=== PATIENT | female | born 1950 | race Caucasian/White ===

== ENCOUNTER 2020-03-18 10:48 | Inpatient (IN) | payer MEDICARE, OTHER ==
[~2020-03-18] VITALS: Ht 193 cm; Wt 78.0 kg
[2020-03-18] MEDS ORDERED: ACETAMINOPHEN ES 500 MG TABLET PO ONE (11:00)
--- NOTE | 2020-03-18 11:05 | NUR ---
BIB [facility] C/O COUGH, SOB, AND BACK PAIN. vs checked. seen by
--- NOTE | 2020-03-18 11:15 | NUR ---
covid swab collected sent to lab
[2020-03-18] MEDS ORDERED: DEXAMETHASONE SOD PHOSPHATE 10 MG/ML VIAL IV ONE (11:30)
[2020-03-18] MEDS ORDERED: DEXAMETHASONE SOD PHOSPHATE 10 MG/ML VIAL ONE (11:37)
[2020-03-18] MEDS ORDERED: ACETAMINOPHEN ES 500 MG TABLET ONE (11:37)
--- NOTE | 2020-03-18 11:41 | NUR ---
urine collected sent to lab.
[2020-03-18 11:44] LABS: ALANINE AMINOTRANSFERASE 19 U/L (12-78); ALBUMIN 3.6 g/dL (3.4-5.0); ALKALINE PHOSPHATASE 74 U/L (46-116); ASPARTATE AMINOTRANSFERASE 35 U/L (15-37); BILIRUBIN,DIRECT 0.1 mg/dL (0.0-0.2); BILIRUBIN,TOTAL 0.4 mg/dL (0.2-1.0); CALCIUM, SERUM 8.7 mg/dL (8.5-10.1); CARBON DIOXIDE 25 mmol/L (21-32); CHLORIDE 93 mmol/L (98-107); CREATININE 1.1 mg/dL (0.6-1.3); GLUCOSE 96 mg/dL (74-106); POTASSIUM 3.8 mmol/L (3.5-5.1); SODIUM SERUM 128 mmol/L (136-145); TOTAL PROTEIN, SERUM 7.4 g/dL (6.4-8.2); UREA NITROGEN, BLOOD 13 mg/dL (7-18)
[2020-03-18 12:18] LABS: BILIRUBIN,URINE Negative (NEGATIVE); COLOR,URINE YELLOW (YELLOW); LEUKOCYTE ESTERASE ,URINE Negative (NEGATIVE); NITRITE, URINE Negative (NEGATIVE); PH,URINE 6.5 (5.0-8.0); PROTEIN,URINE >=300 mg/dl (NEGATIVE); UGLUCOSE Negative (NEGATIVE); UROBILINOGEN,URINE 0.2 EU/dL (0.2)
[2020-03-18 12:28] LABS: BASOPHILS % (AUTO) 0.5 % (0.0-2.0); HEMATOCRIT 35 % (33-45); HEMOGLOBIN 11.3 g/dL (11.5-14.8); LYMPHOCYTES # (AUTO) 0.8 /CMM (0.8-4.8); LYMPHOCYTES % (AUTO) 26.2 % (20.0-44.0); MEAN CORPUSCULAR HGB CONC 33 g/dl (31.0-36.0); MEAN CORPUSCULAR VOLUME 79 fL (82-100); MONOCYTES # (AUTO) 0.4 /CMM (0.1-1.30); MONOCYTES % (AUTO) 14.3 % (2.0-12.0); NEUTROPHILS # (AUTO) 1.8 /CMM (1.8-8.9); PLATELET COUNT (AUTO) 213 /CMM (150-450); RED BLOOD CELL COUNT(AUTO) 4.39 MIL/uL (4.0-5.2); WHITE BLOOD COUNT (AUTO) 3.1 K/uL (4.3-11.0)
[2020-03-18 12:43] LABS: BACTERIA,URINE Rare /HPF (None Seen); RBC,URINE 0-2 /HPF (0-2); SQUAMOUS EPITHELIAL CELL,UR Moderate /HPF (None Seen); WBC,URINE 0-2 /HPF (0-3)
--- NOTE | 2020-03-18 13:25 | NUR ---
received a call from the lab regarding covid result "positive". notified.
[2020-03-18] MEDS ORDERED: ASPIRIN 325 MG TABLET PO ONE (13:30)
[2020-03-18] MEDS ORDERED: ASPIRIN EC 325 MG TABLET.DR PO ONE (13:36)
[2020-03-18] MEDS ORDERED: *INSULIN REGULAR(HUMULIN R)HUM 100 UNIT/ML VIAL SQ PRN (19:00)
[2020-03-18] MEDS ORDERED: ONDANSETRON HCL/PF 4 MG/2 ML VIAL IVP PRN (19:00)
[2020-03-18] MEDS ORDERED: DEXTROSE 50%-WATER 50 ML DISP.SYRIN IV PRN (19:00)
[2020-03-18] MEDS ORDERED: ALBUTEROL SULFATE INH 18 GM HFA.AER.AD IH PRN (19:00)
[2020-03-18] MEDS ORDERED: Z GUARD REMEDY 2 OZ OINT TP PRN (19:00)
[2020-03-18] MEDS ORDERED: INSULIN REGULAR, HUMAN 100 UNIT/ML 3 ML VIAL SQ PRN (19:00)
[2020-03-18] MEDS: BLOOD SUGAR DIAGNOSTIC 1 EACH STRIP IN SCH ×2 (19:56→21:35)
[2020-03-18] MEDS ORDERED: CEFTRIAXONE 1GM BAG (ER ONLY) 50 ML IV ONE (19:58)
[2020-03-18] MEDS ORDERED: ENOXAPARIN SODIUM 40 MG/0.4 ML DISP.SYRIN SQ ONE (19:58)
[2020-03-18] MEDS: CEFTRIAXONE 1 G in IV D5W 50 ML IV SCH (20:01)
[2020-03-18] MEDS: ENOXAPARIN SODIUM 40 MG/0.4 ML DISP.SYRIN SQ SCH (20:08)
--- NOTE | 2020-03-18 20:36 | NUR ---
PATIENT IS AAOX4. NO SOB .BREATHING EVENLY AND UNALBORED ON 4L OF NASAL CANNULA. PATIENT'S BED IS AT THE LOWEST POSITION. SIDE RAILS ARE UP FOR SAFETY. PATIENT STEPHANIE HAS NO COMPLAINT AT THIS TIME. CALL LIGHT IS WITHIN REACH. CONNECTED TO THE PET COUNSELOR. WILL CONTINUE TO SUPERVISE THIS PATIENT.
[2020-03-18] MEDS: DOXYCYCLINE 100 MG in IV D5W 100 ML IV SCH (21:00)
--- NOTE | 2020-03-18 22:16 | NUR ---
PATIENT IS PROVIDED WITH A BED RIOS
--- NOTE | 2020-03-18 22:35 | NUR ---
PATIENT CHANGED INTO CLEAN SHEETS AND GOWN.
--- NOTE | 2020-03-18 23:11 | NUR ---
PATIENT REFUSED NORCO 5-MG MEDICATION RETURNED TO THE Stockezy MACHINE.
[2020-03-18] MEDS ORDERED: ONDANSETRON HCL/PF 4 MG/2 ML VIAL ONE (23:15)
[2020-03-18] MEDS ORDERED: HYDROCODONE/APAP 5/325MG TABLET ONE (23:15)
[2020-03-18] MEDS ORDERED: ACETAMINOPHEN 325 MG TABLET ONE (23:19)
[2020-03-18] MEDS: ACETAMINOPHEN 325 MG TABLET PO PRN (23:22)
--- NOTE | 2020-03-19 03:01 | NUR ---
PATIENT IS ASKING FOR SLEEPING MEDICATIONS. MICHELE DUNHAM DNP IS NOTIFIED.
[2020-03-19] MEDS ORDERED: TRAZODONE 50 MG TABLET ONE (03:08)
[2020-03-19] MEDS: TRAZODONE 50 MG TABLET PO PRN ×2 (03:10→23:42)
[2020-03-19 06:57] LABS: BASOPHILS % (AUTO) 0.4 % (0.0-2.0); HEMATOCRIT 37 % (33-45); HEMOGLOBIN 12.1 g/dL (11.5-14.8); LYMPHOCYTES # (AUTO) 0.8 /CMM (0.8-4.8); LYMPHOCYTES % (AUTO) 40.1 % (20.0-44.0); MEAN CORPUSCULAR HGB CONC 33 g/dl (31.0-36.0); MEAN CORPUSCULAR VOLUME 79 fL (82-100); MONOCYTES # (AUTO) 0.4 /CMM (0.1-1.30); MONOCYTES % (AUTO) 21.5 % (2.0-12.0); NEUTROPHILS # (AUTO) 0.7 /CMM (1.8-8.9); PLATELET COUNT (AUTO) 237 /CMM (150-450)
[2020-03-19 07:36] LABS: ALBUMIN 3.4 g/dL (3.4-5.0); BILIRUBIN,TOTAL 0.2 mg/dL (0.2-1.0); CALCIUM, SERUM 8.9 mg/dL (8.5-10.1); MAGNESIUM 2.2 mg/dL (1.8-2.4); PHOSPHORUS 4.1 mg/dL (2.5-4.9); POTASSIUM 3.4 mmol/L (3.5-5.1); TOTAL PROTEIN, SERUM 7.1 g/dL (6.4-8.2)
[2020-03-19 07:39] LABS: WHITE BLOOD COUNT (AUTO) 1.9 K/uL (4.3-11.0)
--- NOTE | 2020-03-19 07:50 | NUR ---
pt in bed 110x4. not in resp distress. on o2 via nc @ 2lpm satting @ 96%
[2020-03-19 07:51] LABS: THYROID STIMULATING HORMONE 0.07 uIU/mL (0.358-3.74)
[2020-03-19] MEDS: PANTOPRAZOLE 40 MG TABLET.DR PO SCH (08:30)
[2020-03-19] MEDS: BLOOD SUGAR DIAGNOSTIC 1 EACH STRIP IN SCH ×4 (08:47→22:04)
[2020-03-19] MEDS ORDERED: ENOXAPARIN SODIUM 40 MG/0.4 ML DISP.SYRIN SQ ONE (09:47)
[2020-03-19] MEDS ORDERED: PANTOPRAZOLE 40 MG TABLET.DR PO ONE (09:48)
[2020-03-19] MEDS ORDERED: DEXAMETHASONE SOD PHOSPHATE 10 MG/ML VIAL ONE (09:48)
[2020-03-19] MEDS ORDERED: ASPIRIN 81 MG TAB.CHEW ONE (09:48)
[2020-03-19] MEDS: DOXYCYCLINE 100 MG in IV D5W 100 ML IV SCH ×2 (10:00→22:05)
[2020-03-19] MEDS: DEXAMETHASONE SOD PHOSPHATE 10 MG/ML VIAL IV SCH (10:00)
[2020-03-19] MEDS: ASPIRIN EC 81 MG TABLET.DR PO SCH (10:00)
[2020-03-19] MEDS: ENOXAPARIN SODIUM 40 MG/0.4 ML DISP.SYRIN SQ SCH ×2 (10:00→20:34)
[2020-03-19 10:33] LABS: BAND % (MANUAL) 1 % (0.0-5.0); LYMPHOCYTES % (MANUAL) 39 % (16-48); MONOCYTES % (MANUAL) 14 % (0-11.0); NEUTROPHILS % (MANUAL) 46 (42-76)
[2020-03-19] MEDS ORDERED: POTASSIUM CHLORIDE 20 MEQ TAB.PRT.SR PO SCH (11:30)
[2020-03-19] MEDS ORDERED: POTASSIUM CHLORIDE 20 MEQ TAB.PRT.SR PO ONE (11:56)
--- NOTE | 2020-03-19 16:05 | NUR ---
ROOM ASSIGNMENT: [id number]
--- NOTE | 2020-03-19 16:20 | NUR ---
REPORT RECEIVED FROM SOPHIA GONZALEZ FROM
--- NOTE | 2020-03-19 16:21 | NUR ---
REPORT GIVEN TO SOPHIA GOODSON FOR GABINO
--- NOTE | 2020-03-19 16:50 | NUR ---
ADMIT TO TELEMETRY NOTE RECEIVED PATIENT VIA GURNEY, TRANSPORTED BY SOPHIA GONZALEZ. PATIENT TRANSFERRED TO BED. VITAL SIGNS TAKEN, WNL. BP: 125/77 HR 60 TEMP 98.7. PATIENT CURRENTLY ON OXYGEN THERAPY AT 3LPM VIA NASAL CANNULA, TOLERATING SETTINGS WELL. O2 SATURATION 100%. NO S/S OF RESPIRATORY DISTRESS AT THIS TIME. PATIENT IS ALERT/ORIENTED X4, ABLE TO MAKE NEEDS KNOWN. PATIENT IS AMBULATORY WITH ASSIST. SKIN INTACT. PATIENT HAS A L FOREARM 20G IV, INTACT AND PATENT, NO S/S OF INFECTION AT THIS TIME. TELE MONITOR PLACED, SHOWING SINUS RHYTHM AT THIS TIME. PATIENT COMPLAINED OF PAIN AT LEFT UPPER ABDOMEN. TYLENOL PROVIDED. WILL CONTINUE TO MONITOR PATIENT AND PROVIDE CARE.
--- NOTE | 2020-03-19 16:58 | NUR ---
pt6 trabnsported to unit on [facility] with emt and rn at bedside w/ acls protocol. nad noted during transport
[2020-03-19] MEDS: ACETAMINOPHEN 325 MG TABLET PO PRN (17:16)
--- NOTE | 2020-03-19 18:50 | NUR ---
RN CLOSING NOTE PATIENT CURRENTLY IN BED, RESTING. PATIENT CURRENTLY ON OXYGEN THERAPY AT 3LPM VIA NASAL CANNULA, TOLERATING SETTINGS WELL. O2 SATURATION 100%. NO S/S OF RESPIRATORY DISTRESS AT THIS TIME. PATIENT IS ALERT/ORIENTED X4, ABLE TO MAKE NEEDS KNOWN. PATIENT IS AMBULATORY WITH ASSIST. SKIN INTACT. PATIENT HAS A L FOREARM 20G IV, INTACT AND PATENT, NO S/S OF INFECTION AT THIS TIME. TELE MONITOR IS SHOWING SINUS RHYTHM AT THIS TIME. ALL SAFETY MEASURES IN PLACE PER HOSPITAL. BED LOCKED IN LOWEST POSITION, SIDE RAILS UP X2, CALL LIGHT WITHIN REACH. WILL ENDORSE TO TYING IN MACHINE OPERATOR NURSE FOR GABINO.
--- NOTE | 2020-03-19 19:50 | NUR ---
RN OPENING NOTE: RECEIVED PATIENT FROM DAYSIAFT NURSE. CURRENTLY IN BED, RESTING. PATIENT CURRENTLY ON OXYGEN THERAPY AT 3LPM VIA NASAL CANNULA, O2 SATURATION 100%. NO S/S OF RESPIRATORY DISTRESS AT THIS TIME. PATIENT IS ALERT/ORIENTED X4, ABLE TO MAKE NEEDS KNOWN. PATIENT IS AMBULATORY WITH ASSIST. SKIN INTACT. PATIENT HAS A L FOREARM 20G IV, INTACT AND PATENT, ALL SAFETY MEASURES IN PLACE PER HOSPITAL. BED LOCKED IN LOWEST POSITION, SIDE RAILS UP X2, CALL LIGHT WITHIN REACH. WILL CONTINUE TO MONITOR.
[2020-03-19 20:00] VITALS: BP 130/75
[2020-03-19] MEDS: CEFTRIAXONE 1 G in IV D5W 50 ML IV SCH (20:30)
--- NOTE | 2020-03-19 22:20 | NUR ---
RN Note: Pt. requested antihistamine Zyrtec 10 mg for itching. Contacted tourist information assistant MD for order. Noted and carried out.
[2020-03-19] MEDS ORDERED: cetrizine 10 MG TABLET PO PRN (22:30)
--- NOTE | 2020-03-19 23:54 | NUR ---
RN Notes: Pt. unable to sleep. Administered trazadone po prn as ordered. Will continue to monitor.
[2020-03-20] VITALS: BP_SYST 125; BP_SYST 128; BP_DIAS 76; BP_DIAS 78
[2020-03-20 04:00] VITALS: BP 123/80
[2020-03-20 06:34] LABS: BASOPHILS % (AUTO) 0.7 % (0.0-2.0); CALCIUM, SERUM 8.5 mg/dL (8.5-10.1); CREATININE 1.1 mg/dL (0.6-1.3); HEMATOCRIT 37 % (33-45); HEMOGLOBIN 12.2 g/dL (11.5-14.8); LYMPHOCYTES % (AUTO) 20.1 % (20.0-44.0); MAGNESIUM 2.2 mg/dL (1.8-2.4); MEAN CORPUSCULAR HGB CONC 33 g/dl (31.0-36.0); MEAN CORPUSCULAR VOLUME 79 fL (82-100); MONOCYTES # (AUTO) 0.5 /CMM (0.1-1.30); MONOCYTES % (AUTO) 9.8 % (2.0-12.0); NEUTROPHILS # (AUTO) 3.3 /CMM (1.8-8.9); NEUTROPHILS % (AUTO) 69.4 % (43.0-81.0); PHOSPHORUS 3.8 mg/dL (2.5-4.9); PLATELET COUNT (AUTO) 236 /CMM (150-450); POTASSIUM 3.4 mmol/L (3.5-5.1); RED BLOOD CELL COUNT(AUTO) 4.74 MIL/uL (4.0-5.2); WHITE BLOOD COUNT (AUTO) 4.8 K/uL (4.3-11.0)
[2020-03-20 06:40] LABS: THYROID STIMULATING HORMONE 0.29 uIU/mL (0.358-3.74); URIC ACID 5.3 mg/dL (2.6-7.2)
--- NOTE | 2020-03-20 07:35 | NUR ---
TELE/RN OPENING NOTES RECEIVED PATIENT ON BED, AWAKE AND ALERT AND ORIENTED X4. PATIENT IN NO APPARENT RESPIRATORY DISTRESS NOTED. COMPLAINED OF PAIN RATED 9/10. PATIENT IN 3L OXYGEN SATURATION 97%. WILL CONTINUE TO MONITOR.
[2020-03-20 08:00] VITALS: BP 115/66
--- NOTE | 2020-03-20 08:00 | NUR ---
TELE/RN NOTES NORCO 5/325MG 1 TAB WAS GIVEN. WILL CONTINUE TO MONITOR.
[2020-03-20] MEDS: PANTOPRAZOLE 40 MG TABLET.DR PO SCH (08:26)
[2020-03-20] MEDS: DEXAMETHASONE SOD PHOSPHATE 10 MG/ML VIAL IV SCH (08:26)
[2020-03-20] MEDS: ASPIRIN EC 81 MG TABLET.DR PO SCH (08:27)
[2020-03-20] MEDS: HYDROCODONE/APAP 5/325MG TABLET PO PRN ×2 (08:27→22:16)
[2020-03-20] MEDS: ENOXAPARIN SODIUM 40 MG/0.4 ML DISP.SYRIN SQ SCH ×2 (08:28→21:46)
[2020-03-20] MEDS: DOXYCYCLINE 100 MG in IV D5W 100 ML IV SCH ×2 (08:30→22:25)
[2020-03-20] MEDS: BLOOD SUGAR DIAGNOSTIC 1 EACH STRIP IN SCH ×4 (09:08→21:43)
[2020-03-20] MEDS ORDERED: CALC1TAB30 PO (09:26)
[2020-03-20] MEDS ORDERED: GABA300C PO (09:26)
[2020-03-20] MEDS ORDERED: ATOR80TA PO (09:26)
[2020-03-20] MEDS ORDERED: LEVO100T9 PO (09:26)
[2020-03-20] MEDS ORDERED: DOCU100C36 PO (09:26)
[2020-03-20] MEDS ORDERED: DONE10TA44 PO (09:26)
[2020-03-20] MEDS ORDERED: OMEP40CA13 PO (09:26)
[2020-03-20] MEDS ORDERED: DICL50TA9 PO (09:26)
[2020-03-20] MEDS ORDERED: CLON0.1T PO (09:26)
[2020-03-20] MEDS ORDERED: LOSA100T31 PO (09:26)
[2020-03-20] MEDS ORDERED: HYDR100T27 PO (09:26)
[2020-03-20] MEDS ORDERED: CETI10TA14 PO (09:26)
[2020-03-20] MEDS ORDERED: POTASSIUM CHLORIDE 20 MEQ TAB.PRT.SR PO SCH (11:30)
[2020-03-20 13:35] VITALS: BP 115/66
[2020-03-20 16:00] VITALS: BP 122/74
[2020-03-20] MEDS ORDERED: CLONIDINE HCL 0.1 MG TABLET PO PRN (19:00)
--- NOTE | 2020-03-20 19:25 | NUR ---
TELE/RN CLOSING NOTES PATIENT IS ON BED, ALERT AND ORIENTED X4. PATIENT IN NO APPARENT RESPIRATORY DISTRESS. NO COMPLAINED OF PAIN NOTED AT THIS TIME. PATIENT IS ON 3L OXYGEN SATURATION 91%. SEEN FILIBERTO EXAMINED BY MD WITH ORDERS MADE AND CARRIED OUT. ALL DUE MEDICATIONS WAS GIVEN. SAFETY PRECAUTIONS WAS IN PLACED. BED IN LOWEST POSITION AND LOCKED . SIDERAILS UP X2. CALL LIGHT WITHIN REACH. PATIENT IS FOR MIDLINE INSERTION WAITING FOR MIDLINE RN. WILL ENDORSED TO DAIRY PROCESSING EQUIPMENT OPERATOR FOR GABINO.
--- NOTE | 2020-03-20 19:40 | NUR ---
RN OPENING NOTES RECEIVED PT IN BED. AWAKE. A/O X 4. PT IS ON 3L OF O2 VIA NC. TOLERATING WELL. NO S./S OF SOB OR RESP DISTRESS NOTED. SATURATING 98% AT THIS TIME. PT IS ON CARDIAC MONITORING, PRESENTS WITH NSR WITH A HR OF 60 AT THIS TIME, HX OF PT BASELINE SINUS JENNIFER AND SINUS RHYTHM. PT HAS REDNESS NOTED AROUND PERINEAL SITE, WILL F/U WOUND CONSULT. IV SITE TO BE PLACE, PENDING MIDLINE. SAFETY MEASURES IN PLACE. HOB ELEVATED. SIDE RAILS UP X3. BED IS LOCKED IN LOWEST POSITION WITH BED ALARM ON. CALL LIGHT WITHIN REACH. WILL CONTINUE TO MONITOR.
[2020-03-20 20:00] VITALS: BP 125/76
[2020-03-20] MEDS: hydrALAZINE HCL 50 MG TABLET PO SCH (21:00)
--- NOTE | 2020-03-20 21:30 | NUR ---
IV MIDLINE PLACED #18 LEFT ARM BY PICC/MIDLINE NURSE.
--- NOTE | 2020-03-20 21:35 | NUR ---
PT REQUESTS ALLERGY MEDICATION, INFORMED GUN FERTILIZER BELINDA WHO PUT IN ORDER TO GIVE MED. PT COMPLAINS OF ITCHINESS, GROIN AND UNDER BREAST FOLDS. WILL EDUCATE TO KEEP AREA CLEAN AND DRY AND WILL F/U AFTER MEDICATION TAKES EFFECT. Addendum: 03/21/20 at 0246 by ISIDRO PIERSON RN PT VERBALIZES DECREASED ITCHING
[2020-03-20] MEDS: CEFTRIAXONE 1 G in IV D5W 50 ML IV SCH (21:40)
[2020-03-20] MEDS: cetrizine 10 MG TABLET PO SCH (21:42)
[2020-03-20] MEDS ORDERED: ATORVASTATIN 40 MG TABLET PO SCH (22:00)
--- NOTE | 2020-03-20 23:11 | NUR ---
pt request trazadone prn, verbalized she takes it to sleep. educated pt on norco administered earlier and side effects of possible drowsiness. pt at this time, has pain relieved, but insists on trazadone. will administer med and cont to monitor closely.
[2020-03-20] MEDS: TRAZODONE 50 MG TABLET PO PRN (23:15)
[2020-03-21] VITALS: BP 125/76
[2020-03-21 04:00] VITALS: BP 126/73
[2020-03-21 06:30] LABS: POTASSIUM 3.3 mmol/L (3.5-5.1)
[2020-03-21 06:47] LABS: BASOPHILS % (AUTO) 0.3 % (0.0-2.0); HEMATOCRIT 36 % (33-45); HEMOGLOBIN 11.8 g/dL (11.5-14.8); LYMPHOCYTES # (AUTO) 0.8 /CMM (0.8-4.8); LYMPHOCYTES % (AUTO) 22.8 % (20.0-44.0); MEAN CORPUSCULAR HGB CONC 33 g/dl (31.0-36.0); MEAN CORPUSCULAR VOLUME 79 fL (82-100); MONOCYTES # (AUTO) 0.5 /CMM (0.1-1.30); MONOCYTES % (AUTO) 15.5 % (2.0-12.0); NEUTROPHILS # (AUTO) 2.2 /CMM (1.8-8.9); NEUTROPHILS % (AUTO) 61.4 % (43.0-81.0); PLATELET COUNT (AUTO) 225 /CMM (150-450); RED BLOOD CELL COUNT(AUTO) 4.56 MIL/uL (4.0-5.2); WHITE BLOOD COUNT (AUTO) 3.5 K/uL (4.3-11.0)
--- NOTE | 2020-03-21 07:04 | NUR ---
RN CLOSING NOTES NO SIGNIFICANT CHANGES PT RESTED WELL MAJORITY OF THE NIGHT. STILL ON 2L OF O2 VIA NASAL CANNULA TOLERATING WELL. NO SOB OR RESP DISTRESS NOTED. SATURATING WELL 98% ALL NEEDS ATTENDED AT THIS TIME. AFEBRILE. DENIES PAIN. SAFETY MEASURES IN PLACE, HOB ELEVATED TOLERATED. SIDE RAILS UP X2. BED LOCKED IN LOWEST POSITION. CALL LIGHT WITHIN REACH. WILL ENDORSE TO AM NURSE FOR CONTINUATION OF CARE.
[2020-03-21 07:05] LABS: CALCIUM, SERUM 8.4 mg/dL (8.5-10.1); CREATININE 1.2 mg/dL (0.6-1.3); MAGNESIUM 2.1 mg/dL (1.8-2.4); PHOSPHORUS 3.5 mg/dL (2.5-4.9)
--- NOTE | 2020-03-21 07:25 | NUR ---
RN OPENING NOTES PATIENT RECEIVED IN BED, RESTING ALERT AND ORIENTED X 4. ON NASAL CANNULA 2 LITERS WITH NO RESPIRATORY DISTRESS PRESENT AT THIS TIME, WITH EVEN NON-LABORED BREATHING. PATIENT IV ACCESS INTACT AND PATENT. DENIES ANY PAIN OR DISCOMFORT AT THIS TIME. SAFETY PRECAUTIONS IMPLEMENTED WITH BED LOCKED, BILATERAL SIDE RAILS UP, BED IN THE LOWEST POSITION, AND CALL LIGHT WITHIN EASY REACH. WILL CONTINUE TO MONITOR PATIENT.
[2020-03-21] MEDS ORDERED: LEVOTHYROXINE SODIUM 100 MCG TABLET PO SCH (07:30)
[2020-03-21] MEDS: BLOOD SUGAR DIAGNOSTIC 1 EACH STRIP IN SCH ×2 (07:30→11:40)
[2020-03-21] MEDS: PANTOPRAZOLE 40 MG TABLET.DR PO SCH (07:30)
[2020-03-21] MEDS: ENOXAPARIN SODIUM 40 MG/0.4 ML DISP.SYRIN SQ SCH (07:31)
[2020-03-21 08:00] VITALS: BP 138/83
[2020-03-21] MEDS: ASPIRIN EC 81 MG TABLET.DR PO SCH (08:36)
[2020-03-21] MEDS: GABAPENTIN 300 MG CAPSULE PO SCH ×2 (08:36→13:02)
[2020-03-21] MEDS: hydrALAZINE HCL 50 MG TABLET PO SCH ×2 (08:36→13:00)
[2020-03-21] MEDS: DEXAMETHASONE SOD PHOSPHATE 10 MG/ML VIAL IV SCH (08:36)
[2020-03-21] MEDS: cetrizine 10 MG TABLET PO SCH (08:37)
[2020-03-21] MEDS: DOXYCYCLINE 100 MG in IV D5W 100 ML IV SCH (08:38)
[2020-03-21] MEDS: POTASSIUM CHLORIDE 20 MEQ TAB.PRT.SR PO ONE ×2 (08:45→08:50)
[2020-03-21] MEDS ORDERED: LOSARTAN POTASSIUM 50 MG TABLET PO SCH (09:00)
[2020-03-21] MEDS ORDERED: CALCIUM CARB 250MG /VITAMIN D 1 UDTAB PO SCH (09:00)
[2020-03-21] MEDS ORDERED: DICLOFENAC SODIUM 50 MG TABLET.DR PO SCH (09:00)
[2020-03-21] MEDS ORDERED: DOCUSATE SODIUM 100 MG CAPSULE PO SCH (09:00)
[2020-03-21] MEDS ORDERED: DONEPEZIL 5 MG TABLET PO SCH (09:00)
[2020-03-21] MEDS ORDERED: cetrizine 10 MG TABLET PO SCH (09:00)
[2020-03-21] MEDS ORDERED: ASPI-1420 PO (09:33)
[2020-03-21] MEDS ORDERED: DEXA6TAB6 PO (09:33)
[2020-03-21] MEDS ORDERED: BUDE10.2 INH (09:37)
[2020-03-21] MEDS ORDERED: ALBU18HF2 INH (09:37)
[2020-03-21 12:00] VITALS: BP 115/64
[2020-03-21 13:00] VITALS: BP 105/64
--- NOTE | 2020-03-21 13:40 | NUR ---
INFORMATION SECURITY RISK ANALYST NOTES PATIENT ALERT AND ORIENTED X 4. ON NASAL CANNULA, 2 LITERS TOLERATING WELL WITH NO RESPIRATORY DISTRESS NOTED AT THIS TIME. PATIENT STATES SHE HAS OXYGEN AT HOME. PATIENT SKIN WARM AND DRY TO TOUCH. REMOVED IV ACCESS ON LEFT UPPER MIDLINE, CATHETER TIP INTACT AND APPLIED PRESSURE TO SITE. REMOVED ID BAND. PROVIDED EXIT CARE EDUCATION TO PATIENT. SKIN ASSESSMENT DONE. PATIENT ACCOUNTED FOR ALL OF BELONGINGS. PATIENT IS MEDICALLY CLEARED AND STABLE FOR DISCHARGE BY MD. MET ALL OF PATIENT'S NEEDS, VITAL SIGNS WNL. PATIENT LEFT UNIT VIA GURNEY ACCOMPANIED WITH 2 CONTACT LENS CUTTER.
[2020-03-21 14:01] LABS: LYMPHOCYTES % (MANUAL) 16 % (16-48); MONOCYTES % (MANUAL) 20 % (0-11.0); NEUTROPHILS % (MANUAL) 64 (42-76)
[2020-03-21] MEDS ORDERED: IBUPROFEN 400 MG TABLET PO SCH (17:00)
== END 2020-03-21 13:30 | disposition home or self-care (01) | DRG 177 ==
LOC: ER 10:56 → TRANSITION 13:55 → TELE1 03-19 16:24
PROVIDERS: ADMIT Nurse Practitioner Acute Care; ATTEND Student in an Organized Health Care Education/Training Program
PROC: 05H633Z Insertion of Infusion Device into Left Subclavian Vein, Percutaneous Approach (ICD-10-PCS; principal; 2020-03-20)
PROC: B547ZZA Ultrasonography of Left Subclavian Vein, Guidance (ICD-10-PCS; 2020-03-20)
DX: U07.1 COVID-19 (principal); J12.89 Other viral pneumonia; I21.A1 Myocardial infarction type 2; J96.01 Acute respiratory failure with hypoxia; E22.2 Syndrome of inappropriate secretion of antidiuretic hormone; J20.8 Acute bronchitis due to other specified organisms; E11.9 Type 2 diabetes mellitus without complications; J45.909 Unspecified asthma, uncomplicated; I10 Essential (primary) hypertension; D72.819 Decreased white blood cell count, unspecified; R94.6 Abnormal results of thyroid function studies; R91.1 Solitary pulmonary nodule; I71.9 Aortic aneurysm of unspecified site, without rupture
CPT/HCPCS: 36415; 71045-TC; 80048-TC; 80053-TC; 80061-TC; 80076-TC; 81001; 82962-TC; 83540-TC; 83605-TC; 83735-TC; 83880; 84100-TC; 84439-TC; 84443-TC; 84481; 84484-TC; 84550-TC; 85025-TC; 85378-TC; 85730-TC; 86140-TC; 87040-TC; 87081-TC; 87086-TC; 97112-TC; 97116-TC; 97530-TC; C9803; G0378; J0696; J1100; J1650; J1815; J2405; J3490; J7030; J7040; J7060